=== PATIENT | male | born 1955 | race Two or more races ===

== ENCOUNTER 2017-12-27 04:49 | Emergency (ER) | payer SELFPAY ==
[~2017-12-27] VITALS: Ht 182.9 cm; Wt 87.1 kg
--- NOTE | 2017-12-27 04:52 | NUR ---
62-YEAR-OLD MALE BIB [employer]ICE IN CUSTODY FOR FURTHER EVALUATION OF RAPID HEART RATE IN THE 140s. PT. IS ALERT AND AWAKE, ORIENTED X 3 AND SAID HE ALWAYS HAS RAPID HEART RATE SINCE HE HAD OPEN HEART SURGERY. ON ROOM AIR WT NO ACUTE DISTRESS, NO C/O PAIN OR DISCOMFORT. SKIN APPEARS FLUSHED, WARM AND DRY. PLACED ON LIBRARY MANAGER WT ST NOTED. AWAITING MD EVALUATION AND ORDERS. SAFETY PRECAUTION NOTED.
--- NOTE | 2017-12-27 04:54 | NUR ---
DR. ARREDONDO AT BEDSIDE TO EVALUATE PATIENT.
--- NOTE | 2017-12-27 05:15 | NUR ---
LEFT AC GAUGE 18 IV INSERTED WT GOOD BLOOD RETURN. PT TOLERATED WELL.
[2017-12-27 06:08] LABS: BASOPHILS % (AUTO) 0.6 % (0.0-2.0); EOSINOPHILS % (AUTO) 3.6 % (0.0-6.0); HEMATOCRIT 47 % (39-51); LYMPHOCYTES # (AUTO) 2.4 /CMM (0.8-4.8); LYMPHOCYTES % (AUTO) 31.3 % (20.0-44.0); MEAN CORPUSCULAR HEMOGLOBIN 33 PG (26.0-33.0); MEAN CORPUSCULAR HGB CONC 32 g/dl (31.0-36.0); MEAN CORPUSCULAR VOLUME 102 fL (80-96); MONOCYTES # (AUTO) 0.5 /CMM (0.1-1.30); MONOCYTES % (AUTO) 6.7 % (2.0-12.0); NEUTROPHILS # (AUTO) 4.4 /CMM (1.8-8.9); NEUTROPHILS % (AUTO) 57.8 % (43.0-81.0); PLATELET COUNT (AUTO) 170 /CMM (150-450); RDW COEFFICIENT OF VARIATION 14.8 (11.5-15.0); RED BLOOD CELL COUNT(AUTO) 4.59 MIL/uL (4.5-6.0); WHITE BLOOD COUNT (AUTO) 7.6 K/uL (4.3-11.0)
[2017-12-27] MEDS ORDERED: LORAZEPAM INJ 2 MG/ML VIAL ONE (06:13)
[2017-12-27] MEDS: IV NS 0.9% 1,000 ML BAG IV ONE (06:13)
[2017-12-27] MEDS: LORAZEPAM INJ 2 MG/ML VIAL IVP ONE (06:15)
[2017-12-27 06:18] LABS: CALCIUM, SERUM 8.6 mg/dL (8.5-10.1); CREATININE 0.8 mg/dL (0.6-1.3); POTASSIUM 3.8 mmol/L (3.5-5.1)
--- NOTE | 2017-12-27 06:20 | NUR ---
ALL MEDS GIVEN ORDERED AND TOLERATED WELL.
[2017-12-27 06:23] LABS: ALBUMIN 3.8 g/dL (3.4-5.0); BILIRUBIN,DIRECT 0.3 mg/dL (0.0-0.2); BILIRUBIN,TOTAL 0.7 mg/dL (0.2-1.0); TOTAL PROTEIN, SERUM 7.1 g/dL (6.4-8.2)
--- NOTE | 2017-12-27 07:06 | NUR ---
Patient does not wish to proceed with medical care recommended by Dr. Harvey. Patient given information related to possible complications, up to and including , which could occur as a result of leaving the hospital at this time. Patient verbalizes understanding of risks involved due to leaving against medical advice. Patient has signed AMA form.
[2017-12-27 07:24] VITALS: BP 147/109
== END 2017-12-27 07:25 | disposition left against medical advice (07) ==
LOC: ER 04:54
DX: R00.0 Tachycardia, unspecified (principal); I10 Essential (primary) hypertension; Z98.890 Other specified postprocedural states
CPT/HCPCS: 36415; 71045-TC; 80048-TC; 80076-TC; 80305; 85025-TC; A4606; G0480; J2060; J7030; Z7610